=== PATIENT | male | born 1995 | race Caucasian/White ===

== ENCOUNTER 2018-04-15 23:55 | Emergency (ER) | payer MEDICAID ==
[2018-04-16 00:08] VITALS: BP 127/78
--- NOTE | 2018-04-16 00:19 | ED Physician Documentation ---
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 denies: Chest pain / pressure Respiratory: reports: Dyspnea GI: reports: Reviewed and negative Psychiatric: reports: Anxiety PD PAST MEDICAL HISTORY - Past Medical History Past Medical History: Yes Cardiovascular: None Respiratory: None Neuro: None Endocrine/Autoimmune: None GI: None : None HEENT: None Psych: Anxiety Musculoskeletal: None Derm: None - Past Surgical History Past Surgical History: No - Present Medications Home Medications: Ambulatory Orders Medication Instructions Recorded Confirmed Ferrous Sulfate 325 mg PO DAILY #30 tablet 09/11/16 09/12/16 LORazepam [Ativan] 0.5 mg PO HS PRN #7 tablet 09/11/16 09/12/16 LORazepam [Lorazepam] 0.5 - 1 mg PO Q6HR PRN #20 tablet 04/16/18 - Allergies Allergies/Adverse Reactions: Allergies Allergy/AdvReac Type Severity Reaction Status Date / Time No Known Drug Allergies Allergy Verified 04/16/18 00:08 - Social History Does the pt smoke?: No Smoking Status: Never smoker Does the pt drink ETOH?: No Does the pt have substance abuse?: No - Immunizations Immunizations are current?: Yes - POLST Patient has POLST: No PD ED PE NORMAL - Vitals Vital signs reviewed: Yes - General General: Alert and oriented X 3, No acute distress, Well developed/nourished - Cardiac Cardiac: RRR, No murmur - Respiratory Respiratory: No respiratory distress, Clear bilaterally - Neuro Neuro: Alert and oriented X 3 - Psych Psych: Normal mood, Normal affect Results - Vitals Vitals: Vital Signs - 24 hr 04/16/18 00:05 Temperature 36.3 C L Heart Rate 95 Respiratory 18 Rate Blood Pressure 127/78 O2 Saturation 100 Oxygen O2 Source Room air PD MEDICAL DECISION MAKING - ED course Complexity details: reviewed old records, considered differential, d/w patient - Sepsis Event Vital Signs: Vital Signs - 24 hr 04/16/18 00:05 Temperature 36.3 C L Heart Rate 95 Respiratory 18 Rate Blood Pressure 127/78 O2 Saturation 100 Oxygen O2 Source Room air Departure - Departure Disposition: 01 Home, Self Care Clinical Impression: Anxiety Condition: Good Instructions: ED Panic Attack Follow-Up: [facility] [Provider Group] [facility] [Provider Group] Prescriptions: LORazepam [Lorazepam] 0.5 - 1 mg PO Q6HR PRN #20 tablet PRN Reason: Anxiety Discharge Date/Time: 04/16/18 00:34
[2018-04-16] MEDS ORDERED: LORazepam 0.5 MG TABLET PO STA (00:29)
== END 2018-04-16 00:34 | disposition home or self-care (01) ==
LOC: ED 23:55
DX: F41.9 Anxiety disorder, unspecified (principal)
CPT/HCPCS: 99283; A9270

== ENCOUNTER 2019-01-14 07:14 | Outpatient (CLI) | payer MEDICAID | END 2019-01-14 07:15 | disposition EMS.NT | LOC: EMS 07:14 | PROVIDERS: ATTEND Surgery | DX: R56.9 Unspecified convulsions (principal) ==

== ENCOUNTER 2019-01-14 07:55 | Emergency (ER) | payer MEDICAID ==
--- NOTE | 2019-01-14 08:31 | ED Physician Documentation ---
PD HPI SEIZURE - Stated complaint Stated Complaint: SEIZURE - Chief complaint Chief Complaint: Neuro - History obtained from History obtained from: Patient, Family - History of Present Illness Timing - onset: Today Witnessed: Witnessed Number of seizures: Single, Lasted minutes (3) Description of seizure activity: Generalized Injury during seizure: None Associated symptoms: Headache History of seizures: Other (one prior with fever about one year ago) Contributing factors: Fever Similar symptoms before: Work up / diagnostics (worked up by neuro) Recently seen: Not recently seen - Additional information Additional information: 23-year-old male has had one prior febrile seizure about 1 year ago and had a workup done by neuro. He subsequently has had no further seizure until this morning. He has been sick about 3 days with cough congestion and fever and has a 6-month-old son was sick with influenza. Patient was in bed this morning with his she noted him to push on her and then when she looked over at him he was having a whole body seizure with tonic- clonic jerking. This lasted about 3 minutes and he had a brief postictal period. The patient feels improved. Review of Systems Constitutional: reports: Fever, Chills, Myalgias, Fatigue Eyes: denies: Decreased vision Ears: denies: Ear pain Nose: reports: Rhinorrhea / runny nose, Congestion Throat: denies: Sore throat Cardiac: denies: Chest pain / pressure, Palpitations Respiratory: reports: Cough. denies: Dyspnea GI: denies: Abdominal Pain, Nausea, Vomiting : denies: Dysuria, Frequency Skin: denies: Rash Musculoskeletal: denies: Neck pain, Back pain, Extremity pain Neurologic: reports: Seizure, Headache. denies: Generalized weakness, Focal weakness, Numbness PD PAST MEDICAL HISTORY - Past Medical History Past Medical History: Yes Cardiovascular: None Respiratory: None Neuro: Other Endocrine/Autoimmune: None GI: None : None HEENT: None Psych: Anxiety Musculoskeletal: None Derm: None - Past Surgical History Past Surgical History: No - Present Medications Home Medications: Ambulatory Orders Medication Instructions Recorded Confirmed Ferrous Sulfate 325 mg PO DAILY #30 tablet 09/11/16 09/12/16 LORazepam [Ativan] 0.5 mg PO HS PRN #7 tablet 09/11/16 09/12/16 LORazepam [Lorazepam] 0.5 - 1 mg PO Q6HR PRN #20 tablet 04/16/18 Amox/Clav 875/125 [Augmentin] 1 each PO Q12H #20 tablet 01/14/19 Oseltamivir [Tamiflu] 75 mg PO BID #10 capsule 01/14/19 - Allergies Allergies/Adverse Reactions: Allergies Allergy/AdvReac Type Severity Reaction Status Date / Time No Known Drug Allergies Allergy Verified 01/14/19 08:00 - Social History Does the pt smoke?: No Smoking Status: Never smoker Does the pt drink ETOH?: No Does the pt have substance abuse?: No - Immunizations Immunizations are current?: Yes - POLST Patient has POLST: No PD ED PE NORMAL - Vitals Vital signs reviewed: Yes (tachy ) - General General: Alert and oriented X 3, No acute distress, Well developed/nourished - HEENT HEENT: Atraumatic, PERRL, EOMI, Pharynx benign, Dentition benign, Other (right TM is clear the left is inflamed with indisinct landmarks. 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, No motor deficit, No sensory deficit, Normal speech Eye Opening: Spontaneous Motor: Obeys Commands Verbal: Oriented GCS Score: 15 - Psych Psych: Normal mood, Normal affect Results - Vitals Vitals: Vital Signs - 24 hr 01/14/19 01/14/19 07:58 10:30 Temperature 37.1 C 37.4 C Heart Rate 130 H 103 H Respiratory 18 20 Rate Blood Pressure 118/69 120/68 O2 Saturation 99 97 Oxygen O2 Source Room air - Labs Labs: Laboratory Tests 01/14/19 01/14/19 01/14/19 08:01 08:20 08:20 WBC 11.0 H RBC 6.35 H Hgb 12.6 L Hct 38.8 L MCV 61.1 L MCH 19.9 L MCHC 32.5 RDW 16.6 H Plt Count 145 MPV 9.2 Neut # (Auto) 8.0 H Lymph # (Auto) 1.7 Daggett # (Auto) 1.2 H Eos # (Auto) 0.0 Baso # (Auto) 0.1 Absolute Nucleated RBC 0.00 Nucleated RBC % 0.0 Manual Slide Review Indicated RBC Morph Micro Appear 2+ MICROCYTOSIS Sodium 132 L Potassium 3.3 L Chloride 97 L Carbon Dioxide 23 Anion Gap 12.0 BUN 17 Creatinine 1.0 Estimated GFR (MDRD) 93 Glucose 132 H Calcium 8.7 Total Bilirubin 0.7 AST 33 ALT 38 Alkaline Phosphatase 46 Total Protein 7.5 Albumin 4.2 Globulin 3.3 Albumin/Globulin Ratio 1.3 Lipase 34 Influenza A (Rapid) POSITIVE H Influenza B (Rapid) Negative Procedures - IVC sono (time) 0830 Bedside IVC sono: IVC measures (cm) (1.07), Dehydration (est 1-2 liter deficit) PD MEDICAL DECISION MAKING - ED course Complexity details: considered differential, d/w patient, d/w family ED course: 23-year-old male with a febrile seizure this morning likely has influenza he also has left otitis on examination. He is administered intravenous saline and Rocephin and Decadron and a flu swab is obtained as well as some blood work. The Flu is + and the patient has hypokalemia and he is administered potassium bicarbonate. Departure - Departure Disposition: 01 Home, Self Care Clinical Impression: Influenza A, Febrile seizure Otitis media Qualifiers: Otitis media type: suppurative Chronicity: acute Laterality: left Recurrence: not specified as recurrent Spontaneous tympanic membrane rupture: without spontaneous rupture Qualified Code(s): H66.002 - Acute suppurative otitis media without spontaneous rupture of ear drum, left ear Condition: Stable Instructions: ED Otitis Media Acute Adult, ED Flu, ED Seizure Febrile Follow-Up: [facility] [Provider Group] Prescriptions: Amox/Clav 875/125 [Augmentin] 1 each PO Q12H #20 tablet Oseltamivir [Tamiflu] 75 mg PO BID #10 capsule
[2019-01-14] MEDS ORDERED: ACETAMINOPHEN 325 MG TABLET PO STA (08:33)
[2019-01-14] MEDS ORDERED: cefTRIAXone 1 GM in SODIUM CHLORIDE 0.9% MINIBAG 100 ML IV STA (08:33)
[2019-01-14] MEDS ORDERED: DEXAMETHASONE 10 MG/ML VIAL IVP STA (08:33)
[2019-01-14] MEDS ORDERED: SODIUM CHLORIDE 0.9% 1,000 ML IV ONE (08:33)
[2019-01-14 09:01] LABS: BASOPHILS # (AUTO) 0.1 10^3/uL (0.0-0.1); BASOPHILS % (AUTO) 0.6 %; EOSINOPHILS % (AUTO) 0.1 %; HGB - HEMOGLOBIN 12.6 g/dL (14.0-18.0); LYMPHOCYTES # (AUTO) 1.7 10^3/uL (1.5-3.5); LYMPHOCYTES % (AUTO) 15.7 %; MEAN CORPUSCULAR HEMOGLOBIN 19.9 pg (27.0-31.0); MEAN CORPUSCULAR HGB CONC 32.5 g/dL (32.0-36.0); MEAN CORPUSCULAR VOLUME 61.1 fL (80.0-94.0); MEAN PLATELET VOLUME 9.2 fL (7.4-11.4); MONOCYTES # (AUTO) 1.2 10^3/uL (0.0-1.0); MONOCYTES % (AUTO) 11.1 %; NEUTROPHILS % (AUTO) 72.5 %; PLT - PLATELET COUNT 145 10^3/uL (130-450); RED BLOOD COUNT 6.35 10^6/uL (4.70-6.10); RED CELL DISTRIBUTION WIDTH 16.6 % (12.0-15.0)
[2019-01-14 09:05] LABS: ALBUMIN 4.2 g/dL (3.2-5.5); ALBUMIN/GLOBULIN RATIO 1.3 (1.0-2.2); BILIRUBIN,TOTAL 0.7 mg/dL (0.2-1.0); CALCIUM 8.7 mg/dL (8.5-10.3); TOTAL PROTEIN 7.5 g/dL (6.7-8.2)
[2019-01-14 09:31] LABS: RBC MORPHOLOGY (MULTIPLE) 2+ MICROCYTOSIS (NORMAL)
[2019-01-14] MEDS ORDERED: POTASSIUM BICARB 25 MEQ TABLET PO STA (10:21)
[2019-01-14 11:21] VITALS: BP 126/74
== END 2019-01-14 11:15 | disposition home or self-care (01) ==
LOC: ED 07:55
DX: R56.00 Simple febrile convulsions (principal); J10.1 Influenza due to other identified influenza virus with other respiratory manifestations; H66.002 Acute suppurative otitis media without spontaneous rupture of ear drum, left ear; E87.6 Hypokalemia; E86.0 Dehydration
CPT/HCPCS: 36415; 80053; 83690; 85025; 87275; 87276; 96365; 96375; 99283; 99284

== ENCOUNTER 2021-08-29 00:54 | Emergency (ER) | payer MEDICAID ==
[2021-08-29] MEDS ORDERED: KETOROLAC 30 MG/ML VIAL IM STA (01:43)
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
[2021-08-29 02:24] VITALS: BP 110/70
== END 2021-08-29 02:24 | disposition home or self-care (01) ==
LOC: ED 00:54
DX: S13.4XXA Sprain of ligaments of cervical spine, initial encounter (principal); V89.2XXA Person injured in unspecified motor-vehicle accident, traffic, initial encounter; Y93.89 Activity, other specified; Y92.410 Unspecified street and highway as the place of occurrence of the external cause
CPT/HCPCS: 96372; 99283